=== PATIENT | male | born 1980 | race African-American/Black ===

== ENCOUNTER 2018-12-19 23:40 | Emergency (ER) | payer OTHER ==
[~2018-12-19] VITALS: Ht 160 cm; Wt 72.6 kg
[2018-12-19 23:45] VITALS: BP 115/74
--- NOTE | 2018-12-19 23:48 | NUR ---
PT AMBULATED TO BED 10.
[2018-12-20] MEDS ORDERED: AZITHROMYCIN 250 MG TAB PO ONE
--- NOTE | 2018-12-20 | NUR ---
PT CAME TO ER FOR FOLLOW UP. PT STATES "I HAVE A FRIEND THAT TOLD ME TO COME GET CHECKED BECAUSE SHE HAS CHLAMYDIA." PT DOES NOT C/O OF ANY PAIN, PAIN LEVEL 0/10. NKA. NO MED HX. SAFETY MEASURES IN PLACE. WAITING FOR ERMD TO EVALUATE PT.
[2018-12-20] MEDS ORDERED: cefTRIAXone 250 MG VIAL ONE (00:25)
[2018-12-20 01:31] VITALS: BP 115/74
--- NOTE | 2018-12-20 01:31 | NUR ---
Patient discharged with v/s stable. Written and verbal after care instructions given and explained. Patient verbalized understanding. Ambulatory with steady gait. All questions addressed prior to discharge. Advised to follow up with PMD.
== END 2018-12-20 01:31 | disposition home or self-care (01) ==
LOC: MED 23:40
DX: Z20.2 Contact with and (suspected) exposure to infections with a predominantly sexual mode of transmission (principal)
CPT/HCPCS: 96365; 99283; J0696